=== PATIENT | male | born 1945 | race Caucasian/White ===

== ENCOUNTER 2016-12-03 09:21 | Inpatient (IN) | payer OTHER ==
[~2016-12-03] VITALS: Ht 172.7 cm; Wt 127.9 kg
[~2016-12-03 09:21] MED LIST: FENOFIBRATE160 M1 PO; FLOMAX0.4 MG PO; GLIMEPIRIDE2 MG PO; LISINOPRIL10 MG PO; LOMOTIL TABLET1 EACH PO; LOVASTATIN40 MG PO; METOPROLOL TART25 MG PO; VESICARE10 MG PO; VITAMIN D31000 UNIT PO
[2016-12-03 09:50] LABS: EOSINOPHIL (%) 0 % (0-5); HEMATOCRIT 29.3 % (38.0-50.0); IMMATURE GRANULOCYTE (%) 0.4 % (0.0-0.7); LYMPHOCYTE COUNT 0.4 K/uL (1.0-2.8); MCH 31.3 PG (29.0-34.0); MCHC 33.1 G/DL (30.0-36.0); MCV 94.5 FL (86-99); MEAN PLAT.VOLUME 8.1 uM^3 (9.0-12.4); MONOCYTE (%) 5.1 % (3-12); MONOCYTE COUNT 0.4 K/uL (0-0.8); NEUTROPHIL (%) 89.7 % (45-76); PLATELET COUNT 211 K/uL (156-360); RBC DIS.WIDTH-CV 14.1 % (11.8-14.6); RBC DIS.WIDTH-SD 48.9 % (39-53); WHITE BLOOD COUNT 7.8 K/uL (4.1-10.2)
[2016-12-03 10:00] LABS: CHLORIDE 99 mEq/L (99-109); POTASSIUM 3.8 mEq/L (3.7-5.4); SODIUM 134 mEq/L (136-147)
[2016-12-03 10:01] LABS: GLUCOSE 189 mg/dL (70-99)
[2016-12-03 10:03] LABS: ANION GAP 13 MEQ/L (2-14)
[2016-12-03 10:05] LABS: GFR ESTIMATE (CALCULATED) 35 mL/min/
[2016-12-03 10:06] LABS: UREA NITROGEN (BUN) 28 mg/dL (9-23)
[2016-12-03 11:42] LABS: ADD MIUA? YES; BILIRUBIN NEGATIVE; BLOOD MODERATE; COLOR AMBER ((YELLOW)); GLUCOSE (STRIP) NEGATIVE; KETONES NEGATIVE; LEUKOCYTES NEGATIVE; NITRITE NEGATIVE; PROTEIN (STRIP) 100; SPECIFIC GRAVITY 1.019 (1.000-1.030); UROBILINOGEN 0.2 MG/DL (0.2-1.0)
[2016-12-03 11:50] LABS: BACTERIA NONE SEEN /HPF; CALCIUM OXALATE CRYSTALS 3+ /HPF; EPITHELIAL CELLS RARE /HPF; HYALINE CASTS 20-30 /LPF; MUCUS 2+ /LPF; RED BLOOD CELLS 0-5 /HPF (0-5); UCUL ADDED? YES
[2016-12-03 11:51] LABS: GRANULAR CASTS 40-45 /LPF
[2016-12-03 12:27] LABS: TROP-I INTERPRETATION NEGATIVE; TROPONIN-I 0.14 ng/mL (0.0-0.30)
[2016-12-03] MEDS ORDERED: LOPRESSOR25 MG PO (15:17)
[2016-12-03] MEDS ORDERED: PRINIVIL10 MG PO (15:17)
[2016-12-03] MEDS ORDERED: FEOSOL325 MG PO (15:18)
[2016-12-03] MEDS ORDERED: VITAMIN D31000 UNIT PO (15:19)
[2016-12-03] MEDS ORDERED: CLARITIN10 M3 PO (15:19)
[2016-12-03] MEDS ORDERED: GLUCOPHAGE500 MG PO (15:20)
[2016-12-03] MEDS ORDERED: PROBIOTIC1 EAC4 PO (15:20)
[2016-12-03] MEDS ORDERED: PROBIOTIC1 EAC1 PO (15:22)
[2016-12-03] MEDS ORDERED: OXYMETAZOLINE H15 ML BOTH NARES (15:24)
[2016-12-03 16:22] VITALS: BP 142/75
[2016-12-03 18:51] LABS: POINT-OF-CARE METER ID UU13113781; POINT-OF-CARE USER ID NUTSLF44
[2016-12-03 21:36] VITALS: BP 127/63
[2016-12-03 23:40] VITALS: BP 101/53
[2016-12-04 03:45] VITALS: BP 109/59
[2016-12-04 05:40] LABS: ANION GAP 12 MEQ/L (2-14); CHLORIDE 106 MEQ/L (99-109); GFR ESTIMATE (CALCULATED) 43 mL/min/; GLUCOSE 147 mg/dL (70-99); POTASSIUM 4.2 MEQ/L (3.7-5.4); SAMPLE HEMOLYSIS CHECK 0; SAMPLE ICTERIC CHECK 0; SAMPLE LIPEMIA CHECK 0; SODIUM 138 MEQ/L (136-147); UREA NITROGEN (BUN) 33 mg/dL (9-23)
[2016-12-04 06:51] VITALS: BP 122/56
[2016-12-04 07:50] LABS: POINT-OF-CARE METER ID UU13113803
[2016-12-04 11:12] LABS: POINT-OF-CARE METER ID UU13113781
[2016-12-04 12:00] VITALS: BP 123/57
[2016-12-04 14:59] VITALS: BP 117/81
[2016-12-04 16:03] LABS: POINT-OF-CARE METER ID UU13113781
[2016-12-04 19:15] VITALS: BP 133/76
[2016-12-05] VITALS (7 sets, daily range): BP systolic 103–145; BP diastolic 52–72
[2016-12-05 05:29] LABS: HEMATOCRIT 27.7 % (38.0-50.0); MCH 30.7 PG (29.0-34.0); MCHC 32.1 G/DL (30.0-36.0); MCV 95.5 FL (86-99); MEAN PLAT.VOLUME 8.7 uM^3 (9.0-12.4); PLATELET COUNT 166 K/uL (156-360); RBC DIS.WIDTH-CV 14.1 % (11.8-14.6); RBC DIS.WIDTH-SD 49.4 % (39-53); WHITE BLOOD COUNT 2.9 K/uL (4.1-10.2)
[2016-12-05 06:01] LABS: ANION GAP 9 MEQ/L (2-14); CHLORIDE 104 MEQ/L (99-109); GFR ESTIMATE (CALCULATED) 49 mL/min/; GLUCOSE 142 mg/dL (70-99); SAMPLE HEMOLYSIS CHECK 0; SAMPLE ICTERIC CHECK 0; SAMPLE LIPEMIA CHECK 0; SODIUM 137 MEQ/L (136-147); UREA NITROGEN (BUN) 28 mg/dL (9-23)
[2016-12-05 06:15] LABS: ABS NEUTROPHIL COUNT 2.3; BAND NEUTROPHILS 6.6 % (0-8.0); EOSINOPHIL ABS CT 0; INSTRUMENT ABS NEUTROPHIL CT 2.3 K/uL; LYMPHOCYTES 13.2 % (15.0-45.0); METAMYELOCYTES 0.9 %; PLAT.SUFFICIENCY ADEQUATE; SEG.NEUTROPHILS 73.6 % (46.0-76.0); SMUDGE CELLS 0.9
[2016-12-05 08:16] LABS: IMM.RETIC FRACTION 10.1 % (3-19); RETIC HGB EQUIVALENT 30.7 (28-36)
[2016-12-05 08:18] LABS: TROP-I INTERPRETATION NEGATIVE; TROPONIN-I 0.07 ng/mL (0.0-0.30)
[2016-12-05 08:45] LABS: IRON 95 MCG/DL (35-150)
[2016-12-05 08:57] LABS: LACTATE DEHYDROGENASE 270 IU/L (20-246)
[2016-12-05 09:30] LABS: FERRITIN 1404 NG/ML (22-322)
[2016-12-06 04:00] VITALS: BP 141/65
[2016-12-06 05:26] LABS: MCH 31.3 PG (29.0-34.0); MCHC 33.1 G/DL (30.0-36.0); MCV 94.5 FL (86-99); MEAN PLAT.VOLUME 8.7 uM^3 (9.0-12.4); PLATELET COUNT 155 K/uL (156-360); RBC DIS.WIDTH-CV 13.8 % (11.8-14.6); RBC DIS.WIDTH-SD 47.5 % (39-53); RED BLOOD COUNT 3.07 M/uL (4.00-5.50); WHITE BLOOD COUNT 2.9 K/uL (4.1-10.2)
[2016-12-06 05:47] LABS: ANION GAP 9 MEQ/L (2-14); CHLORIDE 103 MEQ/L (99-109); GFR ESTIMATE (CALCULATED) 49 mL/min/; GLUCOSE 162 mg/dL (70-99); POTASSIUM 3.9 MEQ/L (3.7-5.4); SAMPLE HEMOLYSIS CHECK 0; SAMPLE ICTERIC CHECK 0; SAMPLE LIPEMIA CHECK 0; SODIUM 139 MEQ/L (136-147); UREA NITROGEN (BUN) 26 mg/dL (9-23)
[2016-12-06 06:48] LABS: EOSINOPHIL COUNT 0.1 K/uL (0-0.3); IMMATURE GRANULOCYTE (%) 0.7 % (0.0-0.7); INSTRUMENT ABS NEUTROPHIL CT 2.2 K/uL; LYMPHOCYTE COUNT 0.4 K/uL (1.0-2.8); MONOCYTE (%) 8.9 % (3-12); MONOCYTE COUNT 0.3 K/uL (0-0.8); NEUTROPHIL (%) 75.4 % (45-76); NEUTROPHIL COUNT 2.2 K/uL (1.8-6.4); PLAT.SUFFICIENCY ADEQUATE
[2016-12-06 07:46] LABS: POINT-OF-CARE METER ID UU13113781
[2016-12-06 08:33] LABS: BASE EXCESS -0.2 mEq/L (-3 to +3); BICARBONATE 23.9 mEq/L (22-26); CARBOXY HGB 0.1 % (0-5); COMMENTS - BLOOD GASES C+; DEVICE NC; METHEMOGLOBIN 0.7 % (0-1.5); O2 FLOW 3 L/MIN; PCO2 36 mm Hg (35-45); PO2 87 mm Hg (80-100); SITE LR; TOTAL RESP RATE 18 resp/min; pH 7.43 (7.35-7.45)
[2016-12-06 08:56] VITALS: BP 147/65
[2016-12-06 11:26] LABS: POINT-OF-CARE METER ID UU13113781
[2016-12-06 11:43] VITALS: BP 152/70
[2016-12-06 15:40] VITALS: BP 143/68
[2016-12-06 16:47] LABS: POINT-OF-CARE METER ID UU13113781
[2016-12-06 19:10] VITALS: BP 137/68
[2016-12-06 21:41] LABS: POINT-OF-CARE METER ID UU13113781
[2016-12-06 23:59] VITALS: BP 116/57
[2016-12-07 04:45] VITALS: BP 156/64
[2016-12-07 05:02] LABS: EOSINOPHIL (%) 0.9 % (0-5); HEMATOCRIT 28.1 % (38.0-50.0); IMMATURE GRANULOCYTE (%) 0.6 % (0.0-0.7); INSTRUMENT ABS NEUTROPHIL CT 2.3 K/uL; LYMPHOCYTE COUNT 0.5 K/uL (1.0-2.8); MCH 31.1 PG (29.0-34.0); MCHC 33.1 G/DL (30.0-36.0); MEAN PLAT.VOLUME 8.8 uM^3 (9.0-12.4); MONOCYTE (%) 11.1 % (3-12); MONOCYTE COUNT 0.4 K/uL (0-0.8); NEUTROPHIL (%) 71.1 % (45-76); NEUTROPHIL COUNT 2.3 K/uL (1.8-6.4); PLATELET COUNT 164 K/uL (156-360); RBC DIS.WIDTH-CV 13.6 % (11.8-14.6); RBC DIS.WIDTH-SD 46.7 % (39-53); RED BLOOD COUNT 2.99 M/uL (4.00-5.50); WHITE BLOOD COUNT 3.2 K/uL (4.1-10.2)
[2016-12-07 05:28] LABS: ANION GAP 15 MEQ/L (2-14); CHLORIDE 100 MEQ/L (99-109); GFR ESTIMATE (CALCULATED) 58 mL/min/; GLUCOSE 151 mg/dL (70-99); POTASSIUM 4.1 MEQ/L (3.7-5.4); SAMPLE HEMOLYSIS CHECK 0; SAMPLE ICTERIC CHECK 0; SAMPLE LIPEMIA CHECK 0; SODIUM 140 MEQ/L (136-147); UREA NITROGEN (BUN) 23 mg/dL (9-23)
[2016-12-07 07:00] VITALS: BP 120/60
[2016-12-07] MEDS ORDERED: ADVAIR HFA120 INHALA IH (13:05)
[2016-12-07] MEDS ORDERED: LASIX20 MG PO (13:05)
[2016-12-07] MEDS ORDERED: CYANOCOBALAM1000 MCG PO (13:05)
[2016-12-07] MEDS ORDERED: METOPROLOL SUCC25 MG PO (13:05)
[2016-12-07] MEDS ORDERED: MONTELUKAST SOD10 MG PO (13:05)
[2016-12-08] MEDS ORDERED: TOPROL XL25 MG PO (21:54)
[2016-12-08] MEDS ORDERED: CYANOCOBALAM1000 MCG PO (21:55)
[2016-12-08] MEDS ORDERED: SYMBICORT60 INHALA1 IH (21:55)
[2016-12-08] MEDS ORDERED: FUROSEMIDE20 MG PO (21:55)
== END 2016-12-07 16:13 | disposition home or self-care (01) | DRG 690 ==
LOC: EME 09:21 → 4EAST 14:17 → EDOF 14:17 → ENRESERV 14:26 → 4EAST 16:13
PROVIDERS: Emergency Medicine; Internal Medicine; Internal Medicine Cardiovascular Disease; Internal Medicine Pulmonary Disease
DX: N39.0 Urinary tract infection, site not specified (principal); N17.9 Acute kidney failure, unspecified; E66.01 Morbid (severe) obesity due to excess calories; D50.9 Iron deficiency anemia, unspecified; G47.33 Obstructive sleep apnea (adult) (pediatric); E11.22 Type 2 diabetes mellitus with diabetic chronic kidney disease; E87.1 Hypo-osmolality and hyponatremia; J45.909 Unspecified asthma, uncomplicated; D51.9 Vitamin B12 deficiency anemia, unspecified; C61 Malignant neoplasm of prostate; E78.5 Hyperlipidemia, unspecified; N18.9 Chronic kidney disease, unspecified; N20.0 Calculus of kidney; E86.0 Dehydration; Z68.39 Body mass index [BMI] 39.0-39.9, adult; I12.9 Hypertensive chronic kidney disease with stage 1 through stage 4 chronic kidney disease, or unspecified chronic kidney disease; I27.2 Other secondary pulmonary hypertension; Z92.3 Personal history of irradiation; Z87.442 Personal history of urinary calculi; Z85.46 Personal history of malignant neoplasm of prostate; Z79.899 Other long term (current) drug therapy; Z79.84 Long term (current) use of oral hypoglycemic drugs; Z80.1 Family history of malignant neoplasm of trachea, bronchus and lung
CPT/HCPCS: 36600; 71020; 78582; 80048; 81003; 82607; 82728; 82746; 82803; 82948; 83540; 83605; 83615; 83880; 84466; 84484; 85025; 85045; 86850; 86880; 86900; 86901; 87040; 87086; 87493; 87506; 93005; 93306; 93970; 94060; 94640; 94640 76; 94726; 94729; 94799; 99202; 99281; 99285; A9540; A9567; J0696; J1644; J1815; J1940; J7030; J7050

== ENCOUNTER 2016-12-08 17:00 | Inpatient (IN) | payer OTHER ==
[~2016-12-08] VITALS: Ht 172.7 cm; Wt 115.1 kg
[~2016-12-08 17:00] MED LIST changes: +ADVAIR HFA120 INHALA IH; +CLARITIN10 M3 PO; +CYANOCOBALAM1000 MCG PO; +FEOSOL325 MG PO; +GLUCOPHAGE500 MG PO; +LASIX20 MG PO; +LOPRESSOR25 MG PO; +METOPROLOL SUCC25 MG PO; +MONTELUKAST SOD10 MG PO; +OXYMETAZOLINE H15 ML BOTH NARES; +PRINIVIL10 MG PO; +PROBIOTIC1 EAC1 PO; +PROBIOTIC1 EAC4 PO
[2016-12-08 18:13] LABS: ADD MIUA? YES; BILIRUBIN NEGATIVE; BLOOD MODERATE; GLUCOSE (STRIP) NEGATIVE; KETONES NEGATIVE; LEUKOCYTES NEGATIVE; NITRITE NEGATIVE; PROTEIN (STRIP) 30; SPECIFIC GRAVITY 1.018 (1.000-1.030); UROBILINOGEN 0.2 MG/DL (0.2-1.0)
[2016-12-08 18:14] LABS: COLOR YELLOW ((YELLOW))
[2016-12-08 18:21] LABS: BACTERIA NONE SEEN /HPF; EPITHELIAL CELLS RARE /HPF; MUCUS TRACE /LPF; RED BLOOD CELLS 0-5 /HPF (0-5); UCUL ADDED? NO; UNCLASSIFIED CRYSTALS 1+ /HPF; WHITE BLOOD CELLS 0-5 /HPF (0-5)
[2016-12-08 18:29] LABS: CHLORIDE 101 mEq/L (99-109); POTASSIUM 4.6 mEq/L (3.7-5.4); SODIUM 141 mEq/L (136-147)
[2016-12-08 18:29] LABS: HEMATOCRIT 28.2 % (38.0-50.0); MCH 31.3 PG (29.0-34.0); MCHC 32.6 G/DL (30.0-36.0); MCV 95.9 FL (86-99); MEAN PLAT.VOLUME 8.8 uM^3 (9.0-12.4); PLATELET COUNT 205 K/uL (156-360); RBC DIS.WIDTH-SD 49.1 % (39-53); RED BLOOD COUNT 2.94 M/uL (4.00-5.50); WHITE BLOOD COUNT 7.3 K/uL (4.1-10.2)
[2016-12-08 18:32] LABS: ANION GAP 15 MEQ/L (2-14)
[2016-12-08 18:34] LABS: GFR ESTIMATE (CALCULATED) 43 mL/min/
[2016-12-08 18:35] LABS: GLUCOSE 103 mg/dL (70-99); UREA NITROGEN (BUN) 28 mg/dL (9-23)
[2016-12-08] MEDS ORDERED: TOPROL XL25 MG PO (21:54)
[2016-12-08] MEDS ORDERED: FUROSEMIDE20 MG PO (21:55)
[2016-12-08] MEDS ORDERED: SYMBICORT60 INHALA1 IH (21:55)
[2016-12-08] MEDS ORDERED: CYANOCOBALAM1000 MCG PO (21:55)
[2016-12-08 22:15] LABS: EOSINOPHIL (%) 0.7 % (0-5); EOSINOPHIL COUNT 0.1 K/uL (0-0.3); IMMATURE GRANULOCYTE (%) 1.1 % (0.0-0.7); IMMATURE GRANULOCYTE COUNT 0.1 K/uL; INSTRUMENT ABS NEUTROPHIL CT 5.1 K/uL; LYMPHOCYTE COUNT 0.8 K/uL (1.0-2.8); MONOCYTE (%) 14.2 % (3-12); NEUTROPHIL (%) 72.2 % (45-76); NEUTROPHIL COUNT 5.1 K/uL (1.8-6.4)
[2016-12-08 22:51] LABS: BASE EXCESS 6.4 mEq/L (-3 to +3); BICARBONATE 30.5 mEq/L (22-26); CARBOXY HGB 0.7 % (0-5); COMMENTS - BLOOD GASES C+A+; DEVICE NC; METHEMOGLOBIN 0.2 % (0-1.5); O2 FLOW 1.5 L/MIN; PCO2 41 mm Hg (35-45); PO2 63 mm Hg (80-100); SITE LR; pH 7.48 (7.35-7.45)
[2016-12-09] VITALS: BP 121/55
[2016-12-09 02:31] LABS: INFLUENZA A VIRAL ANTIGEN NEGATIVE; INFLUENZA B VIRAL ANTIGEN NEGATIVE
[2016-12-09 04:23] VITALS: BP 148/62
[2016-12-09 05:24] LABS: HEMATOCRIT 25.5 % (38.0-50.0); MCHC 33.3 G/DL (30.0-36.0); MCV 95.9 FL (86-99); MEAN PLAT.VOLUME 8.9 uM^3 (9.0-12.4); PLATELET COUNT 230 K/uL (156-360); RBC DIS.WIDTH-CV 14.1 % (11.8-14.6); RBC DIS.WIDTH-SD 49.4 % (39-53); RED BLOOD COUNT 2.66 M/uL (4.00-5.50)
[2016-12-09 05:53] LABS: ALKALINE PHOSPHATASE 39 IU/L (3-129); ANION GAP 11 MEQ/L (2-14); CHLORIDE 99 MEQ/L (99-109); GFR ESTIMATE (CALCULATED) 49 mL/min/; POTASSIUM 4.6 MEQ/L (3.7-5.4); SAMPLE HEMOLYSIS CHECK 0; SAMPLE ICTERIC CHECK 0; SAMPLE LIPEMIA CHECK 0; SODIUM 136 MEQ/L (136-147); TOTAL BILIRUBIN 0.4 MG/DL (0.0-1.0); UREA NITROGEN (BUN) 27 mg/dL (9-23)
[2016-12-09 06:11] LABS: GLUCOSE 160 mg/dL (70-99)
[2016-12-09 08:11] VITALS: BP 138/64
[2016-12-09 10:06] LABS: C DIFF TOXIN ND (NEGATIVE)
[2016-12-09 12:17] LABS: POINT-OF-CARE METER ID UU13113700
[2016-12-09 19:00] VITALS: BP 148/78
[2016-12-09 21:50] LABS: POINT-OF-CARE METER ID UU13113700
[2016-12-09 23:46] VITALS: BP 140/67
[2016-12-10 04:48] VITALS: BP 144/75
[2016-12-10 07:14] LABS: MCV 94.3 FL (86-99); MEAN PLAT.VOLUME 8.7 uM^3 (9.0-12.4); RBC DIS.WIDTH-CV 13.5 % (11.8-14.6); RBC DIS.WIDTH-SD 46.2 % (39-53); RED BLOOD COUNT 2.97 M/uL (4.00-5.50); WHITE BLOOD COUNT 10.4 K/uL (4.1-10.2)
[2016-12-10 07:17] LABS: PLATELET COUNT 338 K/uL (156-360)
[2016-12-10 07:38] LABS: ANION GAP 8 MEQ/L (2-14); CHLORIDE 100 MEQ/L (99-109); GFR ESTIMATE (CALCULATED) > 59 mL/min/; GLUCOSE 223 mg/dL (70-99); POTASSIUM 4.8 MEQ/L (3.7-5.4); SAMPLE HEMOLYSIS CHECK 0; SAMPLE ICTERIC CHECK 0; SAMPLE LIPEMIA CHECK 0; SODIUM 137 MEQ/L (136-147); UREA NITROGEN (BUN) 23 mg/dL (9-23)
[2016-12-10 12:25] VITALS: BP 153/68
[2016-12-10 12:58] LABS: POINT-OF-CARE METER ID UU13113700
[2016-12-10 16:14] VITALS: BP 167/75
[2016-12-10 17:34] LABS: POINT-OF-CARE METER ID UU13113700
[2016-12-10 20:00] VITALS: BP 154/70
[2016-12-10 21:48] LABS: POINT-OF-CARE METER ID UU13113700
[2016-12-11] VITALS (7 sets, daily range): BP systolic 138–179; BP diastolic 70–81
[2016-12-11 01:07] LABS: POINT-OF-CARE METER ID UU14162513
[2016-12-11 05:42] LABS: HEMATOCRIT 28.7 % (38.0-50.0); MCH 31.7 PG (29.0-34.0); MCHC 33.4 G/DL (30.0-36.0); MCV 94.7 FL (86-99); MEAN PLAT.VOLUME 8.8 uM^3 (9.0-12.4); PLATELET COUNT 348 K/uL (156-360); RBC DIS.WIDTH-CV 13.1 % (11.8-14.6); RBC DIS.WIDTH-SD 44.7 % (39-53); RED BLOOD COUNT 3.03 M/uL (4.00-5.50); WHITE BLOOD COUNT 12.2 K/uL (4.1-10.2)
[2016-12-11 06:09] LABS: ANION GAP 9 MEQ/L (2-14); CHLORIDE 96 MEQ/L (99-109); GFR ESTIMATE (CALCULATED) 58 mL/min/; GLUCOSE 252 mg/dL (70-99); POTASSIUM 4.5 MEQ/L (3.7-5.4); SAMPLE HEMOLYSIS CHECK 0; SAMPLE ICTERIC CHECK 0; SAMPLE LIPEMIA CHECK 0; SODIUM 136 MEQ/L (136-147); UREA NITROGEN (BUN) 31 mg/dL (9-23)
[2016-12-11 10:46] LABS: ALKALINE PHOSPHATASE 43 IU/L (3-129); DIRECT BILIRUBIN 0.1 mg/dL (0.0-0.3); TOTAL BILIRUBIN 0.3 MG/DL (0.0-1.0)
[2016-12-11 12:29] LABS: ERTH.SED.RATE 40 MM/HR (0-20)
[2016-12-11 12:38] LABS: D-DIMER ELISA < 150.00 ng/mLDDU (<230)
[2016-12-11 12:56] LABS: C-REACTIVE PROTEIN 1.5 MG/L (0-10)
[2016-12-11 22:15] LABS: POINT-OF-CARE METER ID UU14174225
[2016-12-12] VITALS (16 sets, daily range): BP systolic 0–196; BP diastolic 0–114
[2016-12-12 06:21] LABS: BASE EXCESS 7.2 mEq/L (-3 to +3); BICARBONATE 36.9 mEq/L (22-26); CARBOXY HGB 0.6 % (0-5); COMMENTS - BLOOD GASES C+; METHEMOGLOBIN 1.1 % (0-1.5); O2 FLOW 15 L/MIN; PCO2 86 mm Hg (35-45); PO2 125 mm Hg (80-100); SITE RR; pH 7.24 (7.35-7.45)
[2016-12-12 06:22] LABS: DEVICE HFNC; TOTAL RESP RATE 16 resp/min
[2016-12-12 08:13] LABS: METH RESISTANT S AUREUS PCR NEGATIVE (NEGATIVE); PROBE CHECK PASS; SPECIMEN PROCESSING CONTROL PASS
[2016-12-12 09:00] LABS: BASE EXCESS 8.4 mEq/L (-3 to +3); BICARBONATE 35.6 mEq/L (22-26); CARBOXY HGB 0.9 % (0-5); PCO2 63 mm Hg (35-45); PO2 45 mm Hg (80-100); pH 7.36 (7.35-7.45)
[2016-12-12 09:01] LABS: COMMENTS - BLOOD GASES A+C+; DEVICE NC; O2 FLOW 1 L/MIN; SITE RR; TOTAL RESP RATE 30 resp/min
[2016-12-12 10:05] LABS: POINT-OF-CARE METER ID UU14162636; POINT-OF-CARE USER ID 612031313
[2016-12-12 10:52] LABS: POINT-OF-CARE METER ID UU13113717
[2016-12-12 14:22] LABS: POINT-OF-CARE METER ID UU14162636; POINT-OF-CARE USER ID 612031313
[2016-12-12 18:03] LABS: POINT-OF-CARE METER ID UU14162636; POINT-OF-CARE USER ID 612031313
[2016-12-12 22:43] LABS: ACETYLCHOLINE RECP BIND ABY+ <0.30 nmol/L (<=0.30)
[2016-12-13] VITALS (24 sets, daily range): BP systolic 126–180; BP diastolic 69–119
[2016-12-13 02:39] LABS: POINT-OF-CARE METER ID UU14208751
[2016-12-13 05:20] LABS: POINT-OF-CARE METER ID UU14208751
[2016-12-13 05:26] LABS: EOSINOPHIL (%) 0 % (0-5); HEMATOCRIT 31.3 % (38.0-50.0); IMMATURE GRANULOCYTE (%) 3.7 % (0.0-0.7); IMMATURE GRANULOCYTE COUNT 0.4 K/uL; INSTRUMENT ABS NEUTROPHIL CT 10.3 K/uL; LYMPHOCYTE COUNT 0.3 K/uL (1.0-2.8); MCH 32.1 PG (29.0-34.0); MCHC 33.5 G/DL (30.0-36.0); MCV 95.7 FL (86-99); MEAN PLAT.VOLUME 8.6 uM^3 (9.0-12.4); MONOCYTE (%) 6.2 % (3-12); MONOCYTE COUNT 0.7 K/uL (0-0.8); NEUTROPHIL (%) 87.2 % (45-76); NEUTROPHIL COUNT 10.3 K/uL (1.8-6.4); NRBC (%) 0.3 /100 WBC (0-0); PLATELET COUNT 413 K/uL (156-360); RBC DIS.WIDTH-CV 13.9 % (11.8-14.6); RBC DIS.WIDTH-SD 48.2 % (39-53); RED BLOOD COUNT 3.27 M/uL (4.00-5.50); WHITE BLOOD COUNT 11.8 K/uL (4.1-10.2)
[2016-12-13 05:47] LABS: ANION GAP 8 MEQ/L (2-14); CHLORIDE 98 MEQ/L (99-109); GFR ESTIMATE (CALCULATED) 58 mL/min/; GLUCOSE 275 mg/dL (70-99); POTASSIUM 4.7 MEQ/L (3.7-5.4); SAMPLE HEMOLYSIS CHECK 0; SAMPLE ICTERIC CHECK 0; SAMPLE LIPEMIA CHECK 0; SODIUM 139 MEQ/L (136-147); UREA NITROGEN (BUN) 41 mg/dL (9-23)
[2016-12-13 07:13] LABS: Estimated Average Glucose 151 mg/dL (70-123); HEMOGLOBIN A1c (GLYCOHEMOGLOB) 6.9 % HGB (Below 5.7)
[2016-12-13 07:19] LABS: ERTH.SED.RATE 46 MM/HR (0-20)
[2016-12-13 09:55] LABS: POINT-OF-CARE METER ID UU14208751
[2016-12-13 11:01] LABS: ADD MIUA? YES; BILIRUBIN NEGATIVE; BLOOD SMALL; COLOR YELLOW ((YELLOW)); GLUCOSE (STRIP) 150; KETONES NEGATIVE; LEUKOCYTES NEGATIVE; NITRITE NEGATIVE; PROTEIN (STRIP) 30; UROBILINOGEN 0.2 MG/DL (0.2-1.0)
[2016-12-13 11:09] LABS: EPITHELIAL CELLS RARE /HPF; RED BLOOD CELLS 20-30 /HPF (0-5); WHITE BLOOD CELLS 0-5 /HPF (0-5)
[2016-12-13 11:10] LABS: BACTERIA NONE SEEN /HPF; MUCUS TRACE /LPF; UCUL ADDED? NO
[2016-12-13 11:55] LABS: BASE EXCESS 12.6 mEq/L (-3 to +3); BICARBONATE 37.4 mEq/L (22-26); CARBOXY HGB 0.9 % (0-5); METHEMOGLOBIN 1.4 % (0-1.5); PCO2 48 mm Hg (35-45); PO2 71 mm Hg (80-100)
[2016-12-13 11:56] LABS: COMMENTS - BLOOD GASES A+C+; DEVICE NC; O2 FLOW 4 L/MIN; SITE RR; TOTAL RESP RATE 21 resp/min
[2016-12-13 14:32] LABS: POINT-OF-CARE METER ID UU14208751
[2016-12-13 15:31] LABS: POINT-OF-CARE METER ID UU13113731
[2016-12-13 18:21] LABS: POINT-OF-CARE METER ID UU14208751
[2016-12-13 22:34] LABS: POINT-OF-CARE METER ID UU13113803
[2016-12-14] VITALS (19 sets, daily range): BP systolic 65–174; BP diastolic 42–99
[2016-12-14 02:23] LABS: POINT-OF-CARE METER ID UU13113748
[2016-12-14 07:36] LABS: POINT-OF-CARE METER ID UU13113748
[2016-12-14 07:55] LABS: ANION GAP 8 MEQ/L (2-14); CHLORIDE 99 MEQ/L (99-109); GFR ESTIMATE (CALCULATED) 58 mL/min/; GLUCOSE 265 mg/dL (70-99); POTASSIUM 4.5 MEQ/L (3.7-5.4); SAMPLE HEMOLYSIS CHECK 0; SAMPLE ICTERIC CHECK 0; SAMPLE LIPEMIA CHECK 0; SODIUM 140 MEQ/L (136-147); UREA NITROGEN (BUN) 42 mg/dL (9-23)
[2016-12-14 07:57] LABS: C3 COMPLEMENT 208 MG/DL (58-170); C4 COMPLEMENT 41 MG/DL (10-40)
[2016-12-14 12:05] LABS: POINT-OF-CARE METER ID UU14162636
[2016-12-14 14:46] LABS: POINT-OF-CARE METER ID UU14162636
[2016-12-14 18:15] LABS: POINT-OF-CARE METER ID UU14162636
[2016-12-14 21:20] LABS: BASE EXCESS 8.6 mEq/L (-3 to +3); BICARBONATE 37.3 mEq/L (22-26); CARBOXY HGB 1.3 % (0-5); METHEMOGLOBIN 1.8 % (0-1.5)
[2016-12-14 21:21] LABS: COMMENTS - BLOOD GASES A+C+; DEVICE VENT; FI02 50 %; MECHANICAL RATE 20 resp/min; MODE AC; PCO2 74 mm Hg (35-45); PEEP 5 CM/H20; PO2 143 mm Hg (80-100); SITE RR; TIDAL VOLUME 550 ML; TOTAL RESP RATE 20 resp/min; pH 7.31 (7.35-7.45)
[2016-12-14 22:17] LABS: TRIGLYCERIDES 451 MG/DL (Normal: <150)
[2016-12-14 23:43] LABS: BASE EXCESS 9.6 mEq/L (-3 to +3); BICARBONATE 33.5 mEq/L (22-26); CARBOXY HGB 0.9 % (0-5); METHEMOGLOBIN 1.3 % (0-1.5)
[2016-12-14 23:44] LABS: COMMENTS - BLOOD GASES A+C+; DEVICE VENT; FI02 40 %; MECHANICAL RATE 20 resp/min; MODE AC; PCO2 42 mm Hg (35-45); PO2 101 mm Hg (80-100); SITE LR; TOTAL RESP RATE 20 resp/min; pH 7.51 (7.35-7.45)
[2016-12-14 23:45] LABS: PEEP 7 CM/H20; TIDAL VOLUME 550 ML
[2016-12-15] VITALS (22 sets, daily range): BP systolic 54–139; BP diastolic 35–113
[2016-12-15 00:25] LABS: POINT-OF-CARE METER ID UU13113803
[2016-12-15 03:34] LABS: CREATINE KINASE 76 IU/L (1-294)
[2016-12-15 03:46] LABS: POINT-OF-CARE METER ID UU14162636
[2016-12-15 06:26] LABS: CREATINE KINASE 112 IU/L (1-294)
[2016-12-15 08:00] LABS: POINT-OF-CARE METER ID UU14162636
[2016-12-15 08:50] LABS: ANION GAP 11 MEQ/L (2-14); CHLORIDE 103 MEQ/L (99-109); GFR ESTIMATE (CALCULATED) 27 mL/min/; GLUCOSE 151 mg/dL (70-99); MAGNESIUM 2.9 mg/dl (1.3-2.7); POTASSIUM 5.2 MEQ/L (3.7-5.4); SODIUM 144 MEQ/L (136-147); UREA NITROGEN (BUN) 63 mg/dL (9-23)
[2016-12-15 11:13] LABS: EOSINOPHIL (%) 0.4 % (0-5); EOSINOPHIL COUNT 0.1 K/uL (0-0.3); HEMATOCRIT 30.6 % (38.0-50.0); IMMATURE GRANULOCYTE (%) 1.9 % (0.0-0.7); IMMATURE GRANULOCYTE COUNT 0.3 K/uL; LYMPHOCYTE COUNT 0.5 K/uL (1.0-2.8); MCH 31.1 PG (29.0-34.0); MEAN PLAT.VOLUME 8.4 uM^3 (9.0-12.4); MONOCYTE (%) 7.5 % (3-12); MONOCYTE COUNT 1.2 K/uL (0-0.8); NEUTROPHIL (%) 87.1 % (45-76); NRBC (%) 0.1 /100 WBC (0-0); PLATELET COUNT 355 K/uL (156-360); RBC DIS.WIDTH-CV 14.6 % (11.8-14.6); RBC DIS.WIDTH-SD 52.6 % (39-53); RED BLOOD COUNT 3.05 M/uL (4.00-5.50); WHITE BLOOD COUNT 16.1 K/uL (4.1-10.2)
[2016-12-15 11:22] LABS: POINT-OF-CARE METER ID UU14162636
[2016-12-15 11:26] LABS: MCV 100.3 FL (86-99)
[2016-12-15 14:37] LABS: POINT-OF-CARE METER ID UU14162636
[2016-12-15 15:19] LABS: INTER. NORMALIZED RATIO 1.1; PROTHROMBIN TIME 12.5 SEC (10.2-12.9)
[2016-12-15 15:22] LABS: PTT 23.7 SEC (25-37)
[2016-12-15 17:42] LABS: POINT-OF-CARE METER ID UU14162636
[2016-12-15 22:13] LABS: POINT-OF-CARE METER ID UU14162636; POINT-OF-CARE USER ID LABHNS84
[2016-12-16] VITALS (25 sets, daily range): BP systolic 71–145; BP diastolic 36–75
[2016-12-16 02:18] LABS: POINT-OF-CARE METER ID UU13113731; POINT-OF-CARE USER ID LABHNS84
[2016-12-16 07:38] LABS: POINT-OF-CARE METER ID UU14162636; POINT-OF-CARE USER ID LABHNS84
[2016-12-16 11:59] LABS: EOSINOPHIL (%) 0.5 % (0-5); EOSINOPHIL COUNT 0.1 K/uL (0-0.3); HEMATOCRIT 28.3 % (38.0-50.0); IMMATURE GRANULOCYTE (%) 1.5 % (0.0-0.7); IMMATURE GRANULOCYTE COUNT 0.1 K/uL; INSTRUMENT ABS NEUTROPHIL CT 8.2 K/uL; LYMPHOCYTE COUNT 0.3 K/uL (1.0-2.8); MCH 33.3 PG (29.0-34.0); MCHC 33.6 G/DL (30.0-36.0); MCV 99.3 FL (86-99); MONOCYTE (%) 6.7 % (3-12); MONOCYTE COUNT 0.6 K/uL (0-0.8); NEUTROPHIL (%) 87.9 % (45-76); NEUTROPHIL COUNT 8.2 K/uL (1.8-6.4); RBC DIS.WIDTH-CV 13.9 % (11.8-14.6); RBC DIS.WIDTH-SD 50.4 % (39-53); RED BLOOD COUNT 2.85 M/uL (4.00-5.50); WHITE BLOOD COUNT 9.4 K/uL (4.1-10.2)
[2016-12-16 12:01] LABS: INTER. NORMALIZED RATIO 1.1; PROTHROMBIN TIME 12.4 SEC (10.2-12.9)
[2016-12-16 12:03] LABS: PTT 27.1 SEC (25-37)
[2016-12-16 12:16] LABS: POINT-OF-CARE METER ID UU13113748
[2016-12-16 13:16] LABS: ANION GAP 7 MEQ/L (2-14); CHLORIDE 108 MEQ/L (99-109); CREATINE KINASE 120 IU/L (1-294); GLUCOSE 184 mg/dL (70-99); POTASSIUM 4.6 MEQ/L (3.7-5.4); SAMPLE HEMOLYSIS CHECK 0; SAMPLE ICTERIC CHECK 0; SAMPLE LIPEMIA CHECK 0; SODIUM 143 MEQ/L (136-147); UREA NITROGEN (BUN) 66 mg/dL (9-23)
[2016-12-16 13:17] LABS: GFR ESTIMATE (CALCULATED) 37 mL/min/
[2016-12-16 13:18] LABS: MEAN PLAT.VOLUME 8.5 uM^3 (9.0-12.4); PLAT.SUFFICIENCY ADEQUATE
[2016-12-16 13:21] LABS: PLATELET COUNT 243 K/uL (156-360)
[2016-12-16 17:44] LABS: EOSINOPHIL (%) 0.2 % (0-5); HEMATOCRIT 28.2 % (38.0-50.0); IMMATURE GRANULOCYTE (%) 1.4 % (0.0-0.7); IMMATURE GRANULOCYTE COUNT 0.2 K/uL; LYMPHOCYTE COUNT 0.2 K/uL (1.0-2.8); MCH 31.7 PG (29.0-34.0); MCHC 32.3 G/DL (30.0-36.0); MCV 98.3 FL (86-99); MEAN PLAT.VOLUME 8.7 uM^3 (9.0-12.4); MONOCYTE (%) 6.1 % (3-12); MONOCYTE COUNT 0.7 K/uL (0-0.8); NEUTROPHIL (%) 90.1 % (45-76); PLATELET COUNT 262 K/uL (156-360); RBC DIS.WIDTH-CV 13.9 % (11.8-14.6); RBC DIS.WIDTH-SD 50.4 % (39-53); RED BLOOD COUNT 2.87 M/uL (4.00-5.50); WHITE BLOOD COUNT 11.1 K/uL (4.1-10.2)
[2016-12-16 18:05] LABS: TROP-I INTERPRETATION NEGATIVE; TROPONIN-I 0.03 ng/mL (0.0-0.30)
[2016-12-16 18:22] LABS: POINT-OF-CARE METER ID UU13113731
[2016-12-16 18:36] LABS: ANION GAP 10 MEQ/L (2-14); CHLORIDE 109 MEQ/L (99-109); CREATINE KINASE 98 IU/L (1-294); GFR ESTIMATE (CALCULATED) 35 mL/min/; GLUCOSE 186 mg/dL (70-99); MAGNESIUM 2.5 mg/dl (1.3-2.7); SAMPLE HEMOLYSIS CHECK 0; SAMPLE ICTERIC CHECK 0; SAMPLE LIPEMIA CHECK 0; SODIUM 144 MEQ/L (136-147); UREA NITROGEN (BUN) 72 mg/dL (9-23)
[2016-12-16 19:10] LABS: APPEARANCE CLEAR/COLORLESS; RED CELL AREA COUNTED 18; RED CELL COUNT 2 /MM^3 (0-1); RED CELL DILUTION 1
[2016-12-16 19:11] LABS: WBC AREA COUNTED 18; WBC DILUTION 1; WHITE CELL COUNT 8 /MM^3 (0-5); WHITE CELL RAW COUNT 15
[2016-12-16 19:32] LABS: CSF EOSINOPHILS 0 % (0-25); MONO RAW COUNT 91; MONONUCLEAR WBC'S 91 % (50-90); POLY RAW COUNT 9; POLYNUCLEAR WBC'S 9 % (0-3)
[2016-12-16 19:58] LABS: SPINAL FLD COMMENT FEW MACROPHAGES SEEN
[2016-12-16 20:05] LABS: CSF LDH 29 IU/L
[2016-12-16 22:05] LABS: POINT-OF-CARE METER ID UU14162636; POINT-OF-CARE USER ID LABHNS84
[2016-12-16 23:20] LABS: HEMATOCRIT 26.7 % (38.0-50.0); MCV 97.4 FL (86-99)
[2016-12-17] VITALS (24 sets, daily range): BP systolic 83–133; BP diastolic 47–78
[2016-12-17 00:17] LABS: TROP-I INTERPRETATION NEGATIVE; TROPONIN-I 0.09 ng/mL (0.0-0.30)
[2016-12-17 01:13] LABS: POINT-OF-CARE METER ID UU14162636; POINT-OF-CARE USER ID LABHNS84
[2016-12-17 05:07] LABS: BASE EXCESS 5.5 mEq/L (-3 to +3); BICARBONATE 29.9 mEq/L (22-26); CARBOXY HGB 0.7 % (0-5); COMMENTS - BLOOD GASES C+A+; DEVICE VENTILATOR; FI02 30 %; MECHANICAL RATE 14 resp/min; METHEMOGLOBIN 0.9 % (0-1.5); MODE AC; PCO2 42 mm Hg (35-45); PEEP 5 CM/H20; PO2 92 mm Hg (80-100); SITE LR; TIDAL VOLUME 550 ML; TOTAL RESP RATE 16 resp/min; pH 7.46 (7.35-7.45)
[2016-12-17 05:24] LABS: EOSINOPHIL (%) 0.7 % (0-5); EOSINOPHIL COUNT 0.1 K/uL (0-0.3); HEMATOCRIT 27.2 % (38.0-50.0); IMMATURE GRANULOCYTE (%) 1.4 % (0.0-0.7); IMMATURE GRANULOCYTE COUNT 0.1 K/uL; LYMPHOCYTE COUNT 0.2 K/uL (1.0-2.8); MCH 32.8 PG (29.0-34.0); MCHC 33.1 G/DL (30.0-36.0); MCV 99.3 FL (86-99); MEAN PLAT.VOLUME 8.7 uM^3 (9.0-12.4); MONOCYTE (%) 7.4 % (3-12); MONOCYTE COUNT 0.7 K/uL (0-0.8); NEUTROPHIL (%) 88.2 % (45-76); PLATELET COUNT 202 K/uL (156-360); RBC DIS.WIDTH-CV 14.2 % (11.8-14.6); RBC DIS.WIDTH-SD 51.3 % (39-53); RED BLOOD COUNT 2.74 M/uL (4.00-5.50); WHITE BLOOD COUNT 9.1 K/uL (4.1-10.2)
[2016-12-17 05:41] LABS: TROP-I INTERPRETATION NEGATIVE; TROPONIN-I 0.07 ng/mL (0.0-0.30)
[2016-12-17 05:57] LABS: ANION GAP 5 MEQ/L (2-14); CHLORIDE 108 MEQ/L (99-109); CREATINE KINASE 84 IU/L (1-294); GFR ESTIMATE (CALCULATED) 33 mL/min/; GLUCOSE 143 mg/dL (70-99); POTASSIUM 4.6 MEQ/L (3.7-5.4); SAMPLE HEMOLYSIS CHECK 0; SAMPLE ICTERIC CHECK 0; SAMPLE LIPEMIA CHECK 0; SODIUM 143 MEQ/L (136-147); UREA NITROGEN (BUN) 70 mg/dL (9-23)
[2016-12-17 07:17] LABS: DIGOXIN 0.6 ng/mL (0.8-2.0)
[2016-12-17 10:20] LABS: HEMATOCRIT 25.9 % (38.0-50.0); MCV 98.5 FL (86-99)
[2016-12-17 12:40] LABS: POINT-OF-CARE METER ID UU13113731
[2016-12-17 15:58] LABS: HEMATOCRIT 27.2 % (38.0-50.0); MCV 98.2 FL (86-99)
[2016-12-17 18:23] LABS: POINT-OF-CARE METER ID UU13113731
[2016-12-17 22:46] LABS: POINT-OF-CARE METER ID UU13113748; POINT-OF-CARE USER ID PHATLC
[2016-12-18] VITALS (20 sets, daily range): BP systolic 104–172; BP diastolic 48–149
[2016-12-18 01:12] LABS: POINT-OF-CARE METER ID UU14208751; POINT-OF-CARE USER ID PHATLC
[2016-12-18 05:32] LABS: EOSINOPHIL (%) 1.5 % (0-5); EOSINOPHIL COUNT 0.1 K/uL (0-0.3); HEMATOCRIT 25.5 % (38.0-50.0); IMMATURE GRANULOCYTE (%) 1.1 % (0.0-0.7); IMMATURE GRANULOCYTE COUNT 0.1 K/uL; INSTRUMENT ABS NEUTROPHIL CT 3.7 K/uL; LYMPHOCYTE COUNT 0.3 K/uL (1.0-2.8); MCH 31.2 PG (29.0-34.0); MCHC 32.2 G/DL (30.0-36.0); MEAN PLAT.VOLUME 8.9 uM^3 (9.0-12.4); MONOCYTE (%) 10.8 % (3-12); MONOCYTE COUNT 0.5 K/uL (0-0.8); NEUTROPHIL (%) 80.6 % (45-76); NEUTROPHIL COUNT 3.7 K/uL (1.8-6.4); PLATELET COUNT 159 K/uL (156-360); RBC DIS.WIDTH-CV 13.7 % (11.8-14.6); RBC DIS.WIDTH-SD 48.6 % (39-53); RED BLOOD COUNT 2.63 M/uL (4.00-5.50); WHITE BLOOD COUNT 4.6 K/uL (4.1-10.2)
[2016-12-18 06:11] LABS: POINT-OF-CARE METER ID UU13113731; POINT-OF-CARE USER ID PHATLC
[2016-12-18 06:23] LABS: ALKALINE PHOSPHATASE 34 IU/L (3-129); ANION GAP 6 MEQ/L (2-14); CHLORIDE 108 MEQ/L (99-109); CREATINE KINASE 61 IU/L (1-294); GFR ESTIMATE (CALCULATED) 35 mL/min/; GLUCOSE 118 mg/dL (70-99); POTASSIUM 4.5 MEQ/L (3.7-5.4); SAMPLE HEMOLYSIS CHECK 0; SAMPLE ICTERIC CHECK 0; SAMPLE LIPEMIA CHECK 0; SODIUM 141 MEQ/L (136-147); TOTAL BILIRUBIN 0.3 MG/DL (0.0-1.0); UREA NITROGEN (BUN) 65 mg/dL (9-23)
[2016-12-18 11:13] LABS: SINGLE STRAND DNA ANTIBODY+ <69 U/mL (<230)
[2016-12-18 12:22] LABS: POINT-OF-CARE METER ID UU14208751
[2016-12-18 17:46] LABS: POINT-OF-CARE METER ID UU13113748
[2016-12-18 19:14] LABS: Albumin, Serum 2.8 g/dL (3.2-4.6); IgG Index, CSF 0.55 index (<0.66)
[2016-12-18 21:14] LABS: Neutrophil Cytoplasmic Aby Negative (Negative)
[2016-12-19] VITALS (21 sets, daily range): BP systolic 105–209; BP diastolic 56–108
[2016-12-19 00:29] LABS: POINT-OF-CARE METER ID UU13113748
[2016-12-19 05:11] LABS: POINT-OF-CARE METER ID UU14174217
[2016-12-19 05:44] LABS: EOSINOPHIL (%) 0.6 % (0-5); IMMATURE GRANULOCYTE (%) 1.1 % (0.0-0.7); INSTRUMENT ABS NEUTROPHIL CT 2.7 K/uL; LYMPHOCYTE COUNT 0.3 K/uL (1.0-2.8); MCH 31.4 PG (29.0-34.0); MCHC 32.6 G/DL (30.0-36.0); MCV 96.2 FL (86-99); MEAN PLAT.VOLUME 9.1 uM^3 (9.0-12.4); MONOCYTE (%) 12.9 % (3-12); MONOCYTE COUNT 0.5 K/uL (0-0.8); NEUTROPHIL (%) 77.4 % (45-76); NEUTROPHIL COUNT 2.7 K/uL (1.8-6.4); PLATELET COUNT 121 K/uL (156-360); RBC DIS.WIDTH-CV 13.8 % (11.8-14.6); RED BLOOD COUNT 2.39 M/uL (4.00-5.50); WHITE BLOOD COUNT 3.5 K/uL (4.1-10.2)
[2016-12-19 06:37] LABS: ALKALINE PHOSPHATASE 39 IU/L (3-129); ANION GAP 7 MEQ/L (2-14); CHLORIDE 107 MEQ/L (99-109); GFR ESTIMATE (CALCULATED) 40 mL/min/; GLUCOSE 157 mg/dL (70-99); MAGNESIUM 2.3 mg/dl (1.3-2.7); SAMPLE HEMOLYSIS CHECK 0; SAMPLE ICTERIC CHECK 0; SAMPLE LIPEMIA CHECK 0; SODIUM 137 MEQ/L (136-147); TOTAL BILIRUBIN 0.3 MG/DL (0.0-1.0); UREA NITROGEN (BUN) 55 mg/dL (9-23)
[2016-12-19 06:38] LABS: CREATINE KINASE 132 IU/L (1-294)
[2016-12-19 11:49] LABS: POINT-OF-CARE METER ID UU14208751
[2016-12-19 17:36] LABS: POINT-OF-CARE METER ID UU14208751
[2016-12-20] VITALS (23 sets, daily range): BP systolic 110–159; BP diastolic 51–89
[2016-12-20 00:04] LABS: POINT-OF-CARE METER ID UU14174217
[2016-12-20 05:26] LABS: EOSINOPHIL (%) 0.2 % (0-5); HEMATOCRIT 24.6 % (38.0-50.0); IMMATURE GRANULOCYTE (%) 1.1 % (0.0-0.7); IMMATURE GRANULOCYTE COUNT 0.1 K/uL; INSTRUMENT ABS NEUTROPHIL CT 4.8 K/uL; LYMPHOCYTE COUNT 0.2 K/uL (1.0-2.8); MCH 32.7 PG (29.0-34.0); MCHC 32.9 G/DL (30.0-36.0); MCV 99.2 FL (86-99); MEAN PLAT.VOLUME 10.1 uM^3 (9.0-12.4); MONOCYTE (%) 9.6 % (3-12); MONOCYTE COUNT 0.6 K/uL (0-0.8); NEUTROPHIL (%) 84.7 % (45-76); NEUTROPHIL COUNT 4.8 K/uL (1.8-6.4); PLATELET COUNT 105 K/uL (156-360); RBC DIS.WIDTH-CV 14.1 % (11.8-14.6); RBC DIS.WIDTH-SD 50.6 % (39-53); RED BLOOD COUNT 2.48 M/uL (4.00-5.50); WHITE BLOOD COUNT 5.7 K/uL (4.1-10.2)
[2016-12-20 06:35] LABS: ALKALINE PHOSPHATASE 37 IU/L (3-129); ANION GAP 6 MEQ/L (2-14); CHLORIDE 107 MEQ/L (99-109); GFR ESTIMATE (CALCULATED) 43 mL/min/; GLUCOSE 127 mg/dL (70-99); POTASSIUM 4.3 MEQ/L (3.7-5.4); SAMPLE HEMOLYSIS CHECK 1; SAMPLE ICTERIC CHECK 0; SAMPLE LIPEMIA CHECK 0; SODIUM 139 MEQ/L (136-147); TOTAL BILIRUBIN 0.3 MG/DL (0.0-1.0); UREA NITROGEN (BUN) 46 mg/dL (9-23)
[2016-12-20 06:43] LABS: POINT-OF-CARE METER ID UU13113748
[2016-12-20 08:29] LABS: MISCELLANEOUS REFERRAL+ VGCC Antibody Assay
[2016-12-20 12:07] LABS: POINT-OF-CARE METER ID UU13113803
[2016-12-20 17:58] LABS: POINT-OF-CARE METER ID UU13113803
[2016-12-21] VITALS (24 sets, daily range): BP systolic 118–150; BP diastolic 57–92
[2016-12-21 00:11] LABS: POINT-OF-CARE METER ID UU13113803
[2016-12-21 06:08] LABS: EOSINOPHIL (%) 0.2 % (0-5); HEMATOCRIT 23.3 % (38.0-50.0); IMMATURE GRANULOCYTE (%) 1.1 % (0.0-0.7); IMMATURE GRANULOCYTE COUNT 0.1 K/uL; INSTRUMENT ABS NEUTROPHIL CT 3.6 K/uL; LYMPHOCYTE COUNT 0.3 K/uL (1.0-2.8); MCH 31.3 PG (29.0-34.0); MCHC 32.2 G/DL (30.0-36.0); MCV 97.1 FL (86-99); MEAN PLAT.VOLUME 9.3 uM^3 (9.0-12.4); MONOCYTE (%) 12.5 % (3-12); MONOCYTE COUNT 0.6 K/uL (0-0.8); NEUTROPHIL (%) 79.2 % (45-76); NEUTROPHIL COUNT 3.6 K/uL (1.8-6.4); PLATELET COUNT 127 K/uL (156-360); RBC DIS.WIDTH-CV 13.8 % (11.8-14.6); RBC DIS.WIDTH-SD 49.1 % (39-53); WHITE BLOOD COUNT 4.6 K/uL (4.1-10.2)
[2016-12-21 06:27] LABS: ANION GAP 7 MEQ/L (2-14); CHLORIDE 108 MEQ/L (99-109); MAGNESIUM 2.2 mg/dl (1.3-2.7); POTASSIUM 3.5 MEQ/L (3.7-5.4); SAMPLE HEMOLYSIS CHECK 0; SAMPLE ICTERIC CHECK 0; SAMPLE LIPEMIA CHECK 0; SODIUM 140 MEQ/L (136-147); TOTAL BILIRUBIN 0.3 MG/DL (0.0-1.0)
[2016-12-21 06:34] LABS: ALKALINE PHOSPHATASE 52 IU/L (3-129); GFR ESTIMATE (CALCULATED) 46 mL/min/; GLUCOSE 158 mg/dL (70-99); UREA NITROGEN (BUN) 41 mg/dL (9-23)
[2016-12-21 06:56] LABS: POINT-OF-CARE METER ID UU13113803
[2016-12-21 07:02] LABS: JO-1 ANTIBODY 9 U/mL (0-99); SM (SMITH) ANTIBODY 12 U/mL (0-99); SS-A (SJOGREN'S) ANTIBODY 9 U/mL (0-99); SS-B (SJOGREN'S) ANTIBODY 6 U/mL (0-99)
[2016-12-21 11:57] LABS: POINT-OF-CARE METER ID UU13113803
[2016-12-21 18:44] LABS: POINT-OF-CARE METER ID UU13113803
[2016-12-21 22:21] LABS: POINT-OF-CARE METER ID UU13113803; POINT-OF-CARE USER ID LABHNS84
[2016-12-22] VITALS (24 sets, daily range): BP systolic 128–175; BP diastolic 64–123
[2016-12-22 00:53] LABS: POINT-OF-CARE METER ID UU13113803
[2016-12-22 07:46] LABS: HEMATOCRIT 24.8 % (38.0-50.0); MCH 32.9 PG (29.0-34.0); MCHC 34.3 G/DL (30.0-36.0); MCV 96.1 FL (86-99); MEAN PLAT.VOLUME 9.3 uM^3 (9.0-12.4); PLATELET COUNT 146 K/uL (156-360); RBC DIS.WIDTH-SD 48.8 % (39-53); RED BLOOD COUNT 2.58 M/uL (4.00-5.50); WHITE BLOOD COUNT 4.8 K/uL (4.1-10.2)
[2016-12-22 08:13] LABS: ANION GAP 10 MEQ/L (2-14); CHLORIDE 104 MEQ/L (99-109); MAGNESIUM 2.2 mg/dl (1.3-2.7); POTASSIUM 3.6 MEQ/L (3.7-5.4); SAMPLE HEMOLYSIS CHECK 0; SAMPLE ICTERIC CHECK 0; SAMPLE LIPEMIA CHECK 0; SODIUM 138 MEQ/L (136-147)
[2016-12-22 08:18] LABS: GFR ESTIMATE (CALCULATED) 49 mL/min/; GLUCOSE 148 mg/dL (70-99); UREA NITROGEN (BUN) 41 mg/dL (9-23)
[2016-12-22 12:17] LABS: POINT-OF-CARE METER ID UU14208751
[2016-12-22 17:55] LABS: POINT-OF-CARE METER ID UU14208751
[2016-12-22 22:13] LABS: POINT-OF-CARE METER ID UU13113803; POINT-OF-CARE USER ID LABHNS84
[2016-12-23] VITALS (7 sets, daily range): BP systolic 125–159; BP diastolic 61–83
[2016-12-23 00:30] LABS: POINT-OF-CARE METER ID UU13113803; POINT-OF-CARE USER ID LABHNS84
[2016-12-23 05:36] LABS: POINT-OF-CARE METER ID UU13113803
[2016-12-23 20:42] LABS: POINT-OF-CARE METER ID UU14208751
== END 2016-12-23 06:39 | disposition short-term general hospital (02) | DRG 207 ==
LOC: EME 17:00 → EDOF 21:44 → ENRESERV 21:46 → 5WEST 23:33 → 4WEST 12-09 10:11 → 5SOUTH 12-09 10:11 → CANRESERV 12-09 10:12 → ENRESERV 12-09 10:12 → CANRESERV 12-11 08:13 → ENRESERV 12-11 08:13 → 5SOUTH 12-11 10:37 → ENRESERV 12-12 06:35 → 5SOUTH 12-12 06:35 → 4WEST 12-12 06:45
PROVIDERS: Emergency Medicine; Hospitalist; Internal Medicine Critical Care Medicine; Internal Medicine Pulmonary Disease; Nurse Practitioner Adult Health; Physician Assistant Medical; Psychiatry & Neurology Clinical Neurophysiology; Radiology Diagnostic Radiology; Specialist
PROC: 5A09458 Assistance with Respiratory Ventilation, 24-96 Consecutive Hours, Intermittent Positive Airway Pressure (ICD-10-PCS; principal; 2016-12-12)
PROC: 5A1955Z Respiratory Ventilation, Greater than 96 Consecutive Hours (ICD-10-PCS; 2016-12-14)
PROC: 0BH18EZ Insertion of Endotracheal Airway into Trachea, Via Natural or Artificial Opening Endoscopic (ICD-10-PCS; 2016-12-14)
PROC: 02HV33Z Insertion of Infusion Device into Superior Vena Cava, Percutaneous Approach (ICD-10-PCS; 2016-12-15)
PROC: 009U3ZX Drainage of Spinal Canal, Percutaneous Approach, Diagnostic (ICD-10-PCS; 2016-12-16)
DX: J96.01 Acute respiratory failure with hypoxia (principal); G61.0 Guillain-Barre syndrome; N17.9 Acute kidney failure, unspecified; E87.3 Alkalosis; G93.41 Metabolic encephalopathy; I48.91 Unspecified atrial fibrillation; R13.10 Dysphagia, unspecified; E86.1 Hypovolemia; E86.0 Dehydration; G72.9 Myopathy, unspecified; E11.22 Type 2 diabetes mellitus with diabetic chronic kidney disease; I27.2 Other secondary pulmonary hypertension; E66.01 Morbid (severe) obesity due to excess calories; Z68.41 Body mass index [BMI] 40.0-44.9, adult; I12.9 Hypertensive chronic kidney disease with stage 1 through stage 4 chronic kidney disease, or unspecified chronic kidney disease; N18.3 Chronic kidney disease, stage 3 (moderate); E78.5 Hyperlipidemia, unspecified; G47.33 Obstructive sleep apnea (adult) (pediatric); D50.9 Iron deficiency anemia, unspecified; I34.0 Nonrheumatic mitral (valve) insufficiency; E03.9 Hypothyroidism, unspecified; Z75.1 Person awaiting admission to adequate facility elsewhere; Z79.84 Long term (current) use of oral hypoglycemic drugs; Z88.0 Allergy status to penicillin; Z85.46 Personal history of malignant neoplasm of prostate; Z85.820 Personal history of malignant melanoma of skin; Z87.442 Personal history of urinary calculi; Z90.79 Acquired absence of other genital organ(s); Z82.5 Family history of asthma and other chronic lower respiratory diseases; Z80.1 Family history of malignant neoplasm of trachea, bronchus and lung
CPT/HCPCS: 31500; 36600; 62270; 70450; 70553; 71010; 71020; 71250; 72129; 72132; 73080; 77003; 80048; 80048 91; 80053; 80076; 80162; 81003; 82040 90; 82042 90; 82085 90; 82436; 82550; 82550 91; 82575; 82607; 82784 90; 82803; 82945; 82948; 83036; 83519 90; 83605; 83615 91; 83735; 83880; 83935; 84100; 84133; 84157; 84238 90; 84300; 84443; 84478; 84481; 84484; 85014; 85018; 85025; 85025 91; 85027; 85379; 85610; 85651; 85730; 86021 90; 86038; 86140; 86160; 86162 90; 86226 90; 86235; 86430; 86617 90; 86618 90; 87040; 87070; 87081; 87205; 87493; 87502; 87641; 89051; 92526 GN; 92610 GN; 93005; 93306; 94002; 94003; 94640; 94640 76; 94760; 94799; 97530 GO; 97530 GP; 99202; 99281; 99285; C8923; C9113; G0378; J0360; J0696; J1160; J1566; J1644; J1815; J1940; J2060; J2250; J2704; J2920; J2930; J7030; J7040; J7050; J7120; J7512; S0028